=== PATIENT | female | born 1970 | race African-American/Black ===

== ENCOUNTER 2020-03-16 07:03 | Outpatient (CLI) | payer OTHER, SELFPAY ==
[2020-03-16 07:54] LABS: Basophils Percent Auto 0.5 % (0.2-1.2); Eosinophils Absolute Auto 0.1 K/mm3 (0-0.3); Eosinophils Percent Auto 1.1 % (0-4.4); Hematocrit 36.8 % (37.0-47.0); Hemoglobin 11.6 g/dL (12.0-15.0); Immature Granulocyte Absolute 0.02 K/mm3 (0.00-0.031); Immature Granulocyte Percent A 0.3 % (0-0.5); Lymphocytes Percent Auto 35.8 % (18.3-44.2); Mean Corpuscular HGB Conc 31.5 g/dl (32-36); Mean Corpuscular Hemoglobin 28.1 pg (26-34); Mean Corpuscular Volume 89.1 fl (80-100); Mean Platelet Volume 10.8 fl (7.4-10.4); Monocytes Absolute Auto 0.3 K/mm3 (0.1-0.6); Monocytes Percent Auto 5.1 % (2.6-8.5); Neutrophils Absolute Auto 3.7 K/mm3 (1.3-6.7); Neutrophils Percent Auto 57.2 % (45.5-73.1); Platelet Count Result 261 k/mm3 (150-375); Red Blood Count 4.13 M/mm3 (4.2-5.4); Red Cell Distribution Width 13.4 % (11.5-14.5); White Blood Count 6.4 K/mm3 (4.5-10.0)
[2020-03-16 08:04] LABS: Alanine Aminotransferase 21 U/L (4-35); Alkaline Phosphatase 109 U/L (38-126); Anion Gap 8 mmol/L (8-16); Aspartate Amino Transferase 29 U/L (14-36); Bilirubin,Total 0.6 mg/dL (0.2-1.3); Blood Urea Nitrogen 17 mg/dL (7-17); Calcium 9.3 mg/dL (8.4-10.2); Carbon Dioxide 28 mmol/L (22-30); Chloride 105 mmol/L (98-107); Cholesterol 212 mg/dL (0-200); Estimated Glomerular Filt Rate > 60; Glucose 88 mg/dL (65-105); HDL Direct 54 mg/dL; Potassium 3.6 mmol/L (3.4-5.0); Sodium 141 mmol/L (137-145); Triglycerides 71 mg/dL (<150)
[2020-03-16 08:15] LABS: LDL Cholesterol Direct 129 mg/dL
== END 2020-03-16 07:04 | disposition home or self-care (01) ==
PROVIDERS: PCP Family Medicine; Visit Provider Family Medicine
DX: Z13.220 Encounter for screening for lipoid disorders (principal); I10 Essential (primary) hypertension; Z00.00 Encounter for general adult medical examination without abnormal findings
CPT/HCPCS: 36415; 80053; 80061; 84443; 85025

== ENCOUNTER 2020-04-22 02:03 | Day surgery (SDC) | payer OTHER, SELFPAY ==
[2020-04-11 08:50] VITALS: BMI 37.8
--- NOTE | 2020-04-11 09:17 | PC.NURSE ---
PT STATES SHE IS TESTED EVERY TWO WEEKS AT [facility]. SHE TESTED POSITIVE 01/2020 UNSURE OF EXACT DATE WILL BRING IN DOCUMENTATION ON DAY OF PROCEDURE-PT INFORMED SHE MUST BRING THIS FOR PROCEDURE TO BE DONE-SHE VERBALIZES UNDERSTANDING. PT STATES THE ONLY SYMPTOM SHE HAD WAS FATIGUE AND DENIES ANY SYMPTOMS NOW.
[2020-04-22] MEDS: LACTATED RINGERS 1,000 ML 150 ML IV CONT (08:42)
[2020-04-22 08:47] VITALS: BP 130/75; PULSE 65; RESP 18; TEMP 36.4; O2SAT 100; BMI 39.9
--- NOTE | 2020-04-22 09:17 | WPDANESEPPF ---
Anes - Initial Pre Proc Eval Procedure: Operation Date: 04/22/20 10:00 Proposed Procedures p Screening Colonoscopy - Julio Burris MD Date/Time: 04/22/20 09:17 Surgeon: Julio Burris MD Pre Op Diagnosis: Neoplasm Screening Patient Data Age: 49 Gender: F Height: 1.63 m Weight: 105.7 kg Last Vital Signs Temp 36.4 C L 04/22/20 08:47 Pulse 65 04/22/20 08:47 Resp 18 04/22/20 08:47 BP 130/75 04/22/20 08:47 Pulse Ox 100 04/22/20 08:47 Allergies Allergy/AdvReac Type Severity Reaction Status Date / Time No Known Allergies Allergy Verified 04/22/20 08:46 Home Medications Medication Instructions Recorded Confirmed Type sodium,potassium,mag sulfates See Rx Instructions .ROUTE 04/10/20 Rx [Suprep Bowel Prep Kit] .COMPLEX #1 ml Patient hx anesthesia problems: none Family hx anesthesia problems: none PMFSH Surgical History Surgical History (Updated 04/22/20 @ 07:27 by Jona Matamoros DO) History of appendectomy Hx of eye surgery (~04/2018) Family History Family History Father Cerebrovascular accident Hypertension Social History Social History Smoking status: Never smoker Alcohol intake: current Substance use: never Substance use type: does not use Living arrangements: with family Spiritual care concerns: No Anes - Eval Final PreProcedure Day of Procedure 04/22/20 09:17 Patient weight: morbidly obese Heart: regular rate and rhythm Lungs: clear to auscultation and normal air movement Airway: Mallampati scale class II Neurological: alert and oriented Last oral intake: >/= 8 hours ASA classification: III Emergent: no Anesthetic plan: proceed Anesthesia type and monitoring: general GIVS and standard monitoring Informed Consent: The patient's anesthetic plan and its attendant risks and benefits were discussed with the patient/family/POA. Questions were solicited and answers provided to the satisfaction of the patient/family/POA.
--- NOTE | 2020-04-22 09:35 | PM.HPGS ---
History of Present Illness History of Present Illness Consent: Risks, benefits, and alternatives have been discussed and questions answered. Patient agrees to proceed with procedure. Chief complaint: Neoplasm Screening Narrative: Sigrid Hooker is a 49 year old female here for screening colonoscopy Review of Systems Constitutional: Constitutional: Denies headache(s) and Denies weakness Eyes: Eyes: Denies blurry vision ENT: Reports Normal hearing present, Denies headache(s) and Denies neck pain Cardiovascular: Cardiovascular: Denies chest pain and Denies dyspnea Respiratory: Respiratory: Denies dyspnea Gastrointestinal: Gastrointestinal: Reports no additional gastrointestinal complaints Genitourinary: Genitourinary: Denies dysuria Musculoskeletal: Musculoskeletal: Denies neck pain Integumentary/Breasts: Skin/Breast: Denies dry skin Neurologic: Reports Normal hearing present, Denies headache(s) and Denies weakness Psychiatric: Psychiatric: Denies anxiety Endocrine: Endocrine: Denies change in body appearance Hematologic/Lymphatic: Hematologic/Lymphatic: Denies easy bleeding Allergic/Immunologic: Allergic/Immunologic: Denies urticaria PMF Past Medical History Medical History (Updated 04/22/20 @ 09:35 by Julio Burris MD) Colon cancer screening Surgical History Surgical History (Updated 04/22/20 @ 07:27 by Jona Matamoros DO) History of appendectomy Hx of eye surgery (~04/2018) Family History Family History Father Cerebrovascular accident Hypertension Social History Social History Smoking status: Never smoker Alcohol intake: current Substance use: never Substance use type: does not use Living arrangements: with family Spiritual care concerns: No Meds Home Medications and Allergies Home Medications Medication Instructions Recorded Confirmed Type sodium,potassium,mag sulfates See Rx Instructions .ROUTE 04/10/20 Rx [Suprep Bowel Prep Kit] .COMPLEX #1 ml Allergies Allergy/AdvReac Type Severity Reaction Status Date / Time No Known Allergies Allergy Verified 04/22/20 08:46 Vital Signs Vital Signs - 24 hr 04/22/20 08:47 Temperature 97.5 F L Pulse Rate 65 Respiratory Rate 18 Blood Pressure 130/75 Pulse Oximetry 100 Exam Const: General: comfortable and no acute distress HENMT: General nose exam: Normal nares present Eyes: General: appearance normal, both eyes and all related structures Neck: Neck: no JVD Resp: Auscultation: clear to auscultation bilaterally Cardio: Rate: regular rate Rhythm: regular rhythm GI: Inspection: non-distended GI Palp: Yes Soft to palpation Skin: General skin exam: normal color Neuro: General: gait normal Speech: normal speech Extrem: General: normal to inspection Psych: Mental Status: mental status grossly normal Assessment and Plan Assessment and plan (1) Colon cancer screening: Code(s): Z12.11 - Encounter for screening for malignant neoplasm of colon Status: Acute Assessment and Plan: will proceed with colonoscopy
[2020-04-22 10:03] VITALS: BP 105/62; PULSE 81; RESP 27; O2SAT 99
[2020-04-22 10:13] VITALS: BP 102/67; PULSE 75; RESP 25; O2SAT 100
[2020-04-22 10:23] VITALS: BP 128/66; PULSE 66; RESP 19; O2SAT 99
[2020-04-22 10:33] VITALS: BP 122/76; PULSE 64; RESP 18; O2SAT 100
== END 2020-04-22 10:36 | disposition home or self-care (01) ==
PROVIDERS: PCP Family Medicine; Visit Provider Internal Medicine Gastroenterology
PROC: 0DJD8ZZ Inspection of Lower Intestinal Tract, Via Natural or Artificial Opening Endoscopic (ICD-10-PCS; CPT 45378; principal; 2020-04-22 10:00)
DX: Z12.11 Encounter for screening for malignant neoplasm of colon (principal); E66.01 Morbid (severe) obesity due to excess calories; Z68.41 Body mass index [BMI] 40.0-44.9, adult
CPT/HCPCS: 45378; J2001; J2704; J7120

== ENCOUNTER 2021-02-13 06:55 | Outpatient (CLI) | payer OTHER, SELFPAY ==
--- NOTE | ~2021-02-13 | XR_ITS ---
EXAMINATION: XR chest 2V DATE: 02/13/2021 07:31 INDICATION: Tuberculosis. TECHNIQUE: Frontal and lateral views of the chest were obtained. COMPARISON: None. FINDINGS: The chest demonstrates clear lungs without pneumonia, pleural effusion, or pneumothorax. Th e heart size is normal. IMPRESSION: 1. No acute cardiopulmonary disease. Reviewed, dictated and finalized at location A. T SNATCHER
[2021-02-13 07:44] LABS: Basophils Percent Auto 0.3 % (0.2-1.2); Eosinophils Absolute Auto 0.1 K/mm3 (0-0.3); Eosinophils Percent Auto 0.7 % (0-4.4); Hemoglobin 11.6 g/dL (12.0-15.0); Immature Granulocyte Absolute 0.02 K/mm3 (0.00-0.031); Immature Granulocyte Percent A 0.3 % (0-0.5); Lymphocytes Percent Auto 31.3 % (18.3-44.2); Mean Corpuscular HGB Conc 31.4 g/dl (32-36); Mean Corpuscular Hemoglobin 28.1 pg (26-34); Mean Corpuscular Volume 89.6 fl (80-100); Mean Platelet Volume 10.7 fl (7.4-10.4); Monocytes Absolute Auto 0.3 K/mm3 (0.1-0.6); Monocytes Percent Auto 4.9 % (2.6-8.5); Neutrophils Absolute Auto 4.2 K/mm3 (1.3-6.7); Neutrophils Percent Auto 62.5 % (45.5-73.1); Platelet Count Result 265 k/mm3 (150-375); Red Blood Count 4.13 M/mm3 (4.2-5.4); Red Cell Distribution Width 13.3 % (11.5-14.5); White Blood Count 6.7 K/mm3 (4.5-10.0)
[2021-02-13 08:01] LABS: Alanine Aminotransferase 19 U/L (4-35); Albumin Level 4.2 g/dL (3.5-5.1); Alkaline Phosphatase 119 U/L (38-126); Anion Gap 5 mmol/L (8-16); Aspartate Amino Transferase 26 U/L (14-36); Bilirubin,Total 0.7 mg/dL (0.2-1.3); Blood Urea Nitrogen 18 mg/dL (7-17); Calcium 9.7 mg/dL (8.4-10.2); Carbon Dioxide 29 mmol/L (22-30); Chloride 105 mmol/L (98-107); Cholesterol 232 mg/dL (0-200); Estimated Glomerular Filt Rate > 60; Glucose 93 mg/dL (65-110); HDL Direct 48 mg/dL; Potassium 4.2 mmol/L (3.4-5.0); Sodium 139 mmol/L (137-145); Triglycerides 45 mg/dL (<150)
[2021-02-13 08:12] LABS: LDL Cholesterol Direct 141 mg/dL
[2021-02-13 08:29] LABS: Vitamin D 25 Hydroxy 44.1 ng/mL
[2021-02-15 17:08] LABS: Varicella IgM Antibody <=0.90 (<=0.90)
[2021-02-17 04:12] LABS: Hepatitis B Core Ab Total Nonreactive (Nonreactive)
== END 2021-02-13 06:56 | disposition home or self-care (01) ==
LOC: ANHLAB 06:57
PROVIDERS: PCP Family Medicine; Visit Provider Nurse Practitioner
DX: E78.5 Hyperlipidemia, unspecified (principal); Z11.1 Encounter for screening for respiratory tuberculosis; E55.9 Vitamin D deficiency, unspecified; Z02.0 Encounter for examination for admission to educational institution
CPT/HCPCS: 36415; 71046; 80053; 80061; 82306; 85025; 86704; 86787

== ENCOUNTER 2021-02-19 06:44 | Outpatient (CLI) | payer OTHER, SELFPAY ==
[2021-02-19 08:41] LABS: Rubella IgG Antibody 21.7 IU/ML
[2021-02-22 15:39] LABS: Mumps Virus IgG Antibody >300.00 AU/mL
[2021-02-22 20:33] LABS: Rubeola Measles IgG >300.00 AU/mL
== END 2021-02-19 06:45 | disposition home or self-care (01) ==
PROVIDERS: PCP Family Medicine; Visit Provider Nurse Practitioner
DX: Z02.0 Encounter for examination for admission to educational institution (principal)
CPT/HCPCS: 36415; 86735; 86762; 86765

== ENCOUNTER 2021-05-09 10:49 | Outpatient (CLI) | payer OTHER, SELFPAY ==
[2021-05-09 12:42] LABS: Alanine Aminotransferase 17 U/L (4-35); Albumin Level 4.2 g/dL (3.5-5.1); Alkaline Phosphatase 117 U/L (38-126); Anion Gap 5 mmol/L (8-16); Aspartate Amino Transferase 28 U/L (14-36); Bilirubin,Total 1.1 mg/dL (0.2-1.3); Blood Urea Nitrogen 11 mg/dL (7-17); Calcium 9.2 mg/dL (8.4-10.2); Carbon Dioxide 26 mmol/L (22-30); Chloride 107 mmol/L (98-107); Estimated Glomerular Filt Rate > 60; Glucose 91 mg/dL (65-110); Potassium 4.1 mmol/L (3.4-5.0); Sodium 138 mmol/L (137-145)
== END 2021-05-09 10:50 | disposition home or self-care (01) ==
LOC: ANHLAB 10:51
PROVIDERS: PCP Family Medicine; Visit Provider Family Medicine
DX: E78.5 Hyperlipidemia, unspecified (principal); F41.8 Other specified anxiety disorders; R13.10 Dysphagia, unspecified
CPT/HCPCS: 36415; 80053; 84443

== ENCOUNTER 2021-06-02 01:44 | Emergency (ER) | payer OTHER, SELFPAY ==
[2021-06-02] VITALS (26 sets, daily range): BP systolic 123–146; BP diastolic 68–107; PULSE 52–78; RESP 14–27; TEMP 36.4–36.8; O2SAT 98–100
--- NOTE | ~2021-06-02 | XR_ITS ---
EXAMINATION: XR chest 1V portable DATE: 06/02/2021 02:26 INDICATION: Chest pain. TECHNIQUE: A single frontal view of the chest was obtained. COMPARISON: Chest 2 views 02/13/2021 FINDINGS: There is mild atelectasis in right lower lung zone. No pleural effusion or pneumothorax. Th e heart size is normal. IMPRESSION: 1. Mild atelectasis in right lower lung zone. Reviewed, dictated and finalized at location A. STMAS TREE FARM MANAGER
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
--- NOTE | ~2021-06-02 | CT_ITS ---
EXAMINATION: CTA chest PE protocol DATE: 06/02/2021 04:07 INDICATION: Chest pain. TECHNIQUE: Computed tomography angiography (CTA) of the chest was performed with 100 mL Omnipaque-350 intravenous contrast timed to evaluate the pulmonary arteries. Coronal maximum intensity projection 3D-reconstructions were created by the technologist. Automated exposure control and iterative reconst ruction technique were employed. The dose-length product was 847.46 mGy-cm. COMPARISON: Chest single view 06/02/2021 FINDINGS: The lungs demonstrate mild atelectasis. No pleural effusion. The heart size is normal. No p ericardial effusion. There is no pulmonary embolus. There is mild thoracic spondylosis. IMPRESSION: 1. No pulmonary embolus. Reviewed, dictated and finalized at location A. SPECTROMETRY MANAGER IMPRESSION: 1. No pulmonary embolus.
--- NOTE | 2021-06-02 01:49 | ECG_ITS ---
Measurements Intervals [place] Rate: 74 P: 63 W[place]: 187 QRS: 17 QRSD: 83 T: 19 QT: 381 QTc: 423 Interpretive Statements SINUS RHYTHM NORMAL ECG NO PREVIOUS ECG AVAILABLE FOR COMPARISON Electronically Signed On 06-02-2021 14:04:22 MARKETING SUPPORT SPECIALIST by Kei Pitt M.D.
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
[2021-06-02] MEDS: ASPIRIN 81 MG CHEWABLE TABLET 324 MG PO (02:16)
[2021-06-02] MEDS: NITROGLYCERIN OINTMENT 1 INCH DOSE TRANSDERM (02:16)
[2021-06-02] MEDS: SODIUM CHLORIDE 0.9% IV 1,000 ML 1000 ML (02:25)
[2021-06-02 02:31] LABS: Basophils Percent Auto 0.3 % (0.2-1.2); Eosinophils Absolute Auto 0.1 K/mm3 (0-0.3); Eosinophils Percent Auto 1.2 % (0-4.4); Hematocrit 39.7 % (37.0-47.0); Hemoglobin 12.4 g/dL (12.0-15.0); Immature Granulocyte Absolute 0.02 K/mm3 (0.00-0.031); Immature Granulocyte Percent A 0.2 % (0-0.5); Lymphocytes Absolute Auto 3.07 K/mm3 (0.9-3.2); Lymphocytes Percent Auto 35.4 % (18.3-44.2); Mean Corpuscular HGB Conc 31.2 g/dl (32-36); Mean Corpuscular Hemoglobin 28.1 pg (26-34); Mean Corpuscular Volume 89.8 fl (80-100); Mean Platelet Volume 11.7 fl (7.4-10.4); Monocytes Absolute Auto 0.4 K/mm3 (0.1-0.6); Monocytes Percent Auto 4.7 % (2.6-8.5); Neutrophils Percent Auto 58.2 % (45.5-73.1); Platelet Count Result 243 k/mm3 (150-375); Red Blood Count 4.42 M/mm3 (4.2-5.4); Red Cell Distribution Width 13.2 % (11.5-14.5); White Blood Count 8.7 K/mm3 (4.5-10.0)
[2021-06-02 02:40] LABS: Troponin I < 0.012 ng/mL (0.000-0.034)
[2021-06-02 02:56] LABS: Partial Thromboplastin Time 30.5 SECONDS (22.3-36.8); Prothrombin Time 13.1 Seconds (11.1-14.7)
[2021-06-02 02:59] LABS: D Dimer 0.53 ug/mL (<0.48)
[2021-06-02 03:20] LABS: Alanine Aminotransferase 16 U/L (4-35); Albumin Level 3.9 g/dL (3.5-5.1); Alkaline Phosphatase 115 U/L (38-126); Anion Gap 6 mmol/L (8-16); Aspartate Amino Transferase 28 U/L (14-36); Bilirubin,Total 0.4 mg/dL (0.2-1.3); Blood Urea Nitrogen 12 mg/dL (7-17); Carbon Dioxide 27 mmol/L (22-30); Chloride 105 mmol/L (98-107); Estimated CRCL calculation 84 ml/min; Estimated Glomerular Filt Rate > 60; Glucose 97 mg/dL (65-110); Lipase 145 U/L (23-300); Sodium 138 mmol/L (137-145)
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
[2021-06-02 05:22] LABS: Troponin I < 0.012 ng/mL (0.000-0.034)
== END 2021-06-02 06:16 | disposition home or self-care (01) ==
PROVIDERS: Emergency Provider Emergency Medicine; PCP Family Medicine
DX: R07.89 Other chest pain (principal); E78.5 Hyperlipidemia, unspecified
CPT/HCPCS: 36415; 70450; 71045; 71275; 80053; 83690; 84484; 85025; 85380; 85610; 85730; 93005; 96360; 99284; A9270; J7030; Q9967

== ENCOUNTER 2022-08-13 09:18 | Outpatient (CLI) | payer OTHER, SELFPAY ==
--- NOTE | ~2022-08-13 | XR_ITS ---
Left Knee Technique: AP, lateral, and sunrise views were obtained. Clinical History: Pain Findings: No fracture or dislocation is seen. Osseous alignment is anatomic. There is mild to moderat e degenerative change of the medial compartment. There is minimal patellar spurring.. Soft tissues ar e unremarkable. No joint effusion is seen. Impression: Mild to moderate degenerative change of the medial compartment. Mild degenerative change of the patellofemoral compartment. Reviewed, dictated and finalized at location M. Impression: Mild to moderate degenerative change of the medial compartment. Mild degenerative change of the patellofemoral compartment.
--- NOTE | ~2022-08-13 | XR_ITS ---
Right Knee Technique: AP, lateral, and sunrise views were obtained. Clinical History: Pain Findings: No fracture or dislocation is seen. Osseous alignment is anatomic. There is moderate degene rative change of the medial compartment, with medial compartment narrowing and medial joint line oste ophyte formation. There is mild degenerative change at the patellofemoral compartment. Soft tissues a re unremarkable. No joint effusion is seen. Impression: Moderate degenerative change of the medial compartment, as detailed above. Mild degenerative change of the patellofemoral compartment. Reviewed, dictated and finalized at location M. Impression: Moderate degenerative change of the medial compartment, as detailed above. Mild degenerative change of the patellofemoral compartment.
== END 2022-08-13 09:19 | disposition home or self-care (01) ==
PROVIDERS: PCP Family Medicine; Visit Provider Family Medicine
DX: M17.0 Bilateral primary osteoarthritis of knee (principal)
CPT/HCPCS: 73562

== ENCOUNTER 2022-09-02 08:00 | Outpatient (RCR) | payer OTHER, SELFPAY ==
--- NOTE | 2022-08-27 09:57 | OPREHPOC ---
Outpatient Therapy Plan of Care This is a Multidisciplinary Plan of Care that may contain components documented by all disciplines (PT, OT, and ST.) PT Problem 1 PT Problem #1 Knowledge Deficit PT Goal 1 Goal Pt to be IND with issued HEP Target Visit 4 PT Problem 2 PT Problem #2 Pain PT Goal 1 Goal Pt to report maritza knee pain no greater than 4/10 in the last week. Target Visit 4 PT Goal 2 Goal Pt to report 75% improvement in overall symptoms Target Visit 4 Progress Met PT Problem 3 PT Problem #3 Impaired Range of Motion PT Goal 1 Goal Pt to demonstrate active R knee ROM without an increase in pain Target Visit 4 PT Problem 4 PT Problem #4 Impaired Strength PT Goal 1 Goal Pt to demonstrate neutral hip alignment during single leg stance Target Visit 4 PT Goal 2 Goal Pt to improve 5xSTS time from 20s to 15s Target Visit 4 PT Problem 5 PT Problem #5 Impaired Gait PT Goal 1 Goal Pt to improve 2 min walk distance from 415ft to 450ft Target Visit 4
--- NOTE | 2022-08-27 09:57 | PTOPEVAL1 ---
Assessment and note entered by Aly Pitt, PT, DPT Evaluation Information Assessment Status Evaluation Diagnosis maritza knee pain Onset 6 months Subjective Information Pt reports maritza knee pain without a JUAN ALBERTO. Pt states her pain increases with increased activity, with intermittent swelling. At times she states pain limits her ability to walk. Pt states she can stand for 30 mins at the most. She reports feeling like her muscles are too weak to hold her. Her R knee will feel like its going to give out on her, she wears a brace to assist with this. 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 Reported Pain Level Pain Score 6,6: Self Report Assessment PT Clinical Summary Sigrid presents to therapy today for her initial evaluation with a diagnosis of maritza knee pain. Today she demonstrates mild genu valgus during standing with medial knee compression, poor R patellar mobility, gait abnormalities, and hip, knee, and ankle strength deficits. She is limited with how long she can stand prior to needing to sit. Skilled therapy services are indicated to address the deficits noted above, to manage pain, to improve mobility, and to return to [facility]. Plan of Care Interventions Electrical Stimulation,Gait Training,Hot Pack/Cold Pack,Manual Therapy,Neuro Re-education,Patient/ Caregiver Educati,Therapeutic Activities, Therapeutic Exercise PT Services Indicated Yes Treatment Frequency and 1x/wk for 4 wks Duration These treatments will address the objective and functional deficits as defined above. The patient will be advanced safely and appropriately in order for the patient to progress towards his/her prior level of function. Additional exercises will be introduced and as well as a comprehensive home exercise program upon discharge, if needed, ?to ensure carryover of functional gains achieved in the clinic. This treatment plan has been reviewed and agreement upon by the patient.
--- NOTE | 2022-09-10 11:25 | PCPTNOTE ---
Patient called and canceled this date due to illness.
--- NOTE | 2022-09-16 07:59 | PCPTNOTE ---
Patient reports she is out of town and needs to cancel her appointment.
--- NOTE | 2022-09-24 08:28 | PCPTNOTE ---
Patient did not show up for scheduled appointment this date. Called and LVM with instructions for pt to follow up with clinic. If we do not hear from her in 1 week she will be discharged.
--- NOTE | 2022-09-24 16:03 | PCPTNOTE ---
Pt called to clinic today to state the reason she did not come to her appointment is because she is out of town. She states she will call back to reschedule.
--- NOTE | 2022-11-10 11:31 | PTOPDC ---
Assessment and note entered by Aly Pitt, PT, DPT Evaluation Information Assessment Status Discharge - Pt Not Present Diagnosis maritza knee pain Onset 6 months Subjective Information Pt called and cancelled her apt on 09/24/22 and stated she would call back to reschedule. She has not done so. She will be discharged at this time d /t poor therapy attendance. Assessment PT Clinical Summary Sigrid completed 2 visits of skilled therapy from to 09/24/22.
== END 2022-11-10 14:48 | disposition home or self-care (01) ==
LOC: ANHGOSHPT 08:00
PROVIDERS: PCP Family Medicine; Visit Provider Family Medicine
DX: M25.561 Pain in right knee (principal); M25.562 Pain in left knee; G89.29 Other chronic pain
CPT/HCPCS: 97110; 97112; 97161; 97530; 99199

== ENCOUNTER 2024-09-05 14:15 | Outpatient (CLI) | payer OTHER, SELFPAY ==
--- NOTE | ~2024-09-05 | XR_ITS ---
Left Knee Technique: AP, lateral, and sunrise views were obtained. Clinical History: Pain Findings: No fracture or dislocation is seen. Osseous alignment is anatomic. Minimal degenerative sotero nges are present with any. Soft tissues are unremarkable. No joint effusion is seen. Impression: Minimal degenerative changes of the knee. Reviewed, dictated and finalized at location . Impression: Minimal degenerative changes of the knee.
--- NOTE | ~2024-09-05 | XR_ITS ---
Right Knee Technique: AP, lateral, and sunrise views were obtained. Clinical History: Pain Findings: No fracture or dislocation is seen. There is moderate degenerative change of the medial com partment, with medial compartment narrowing and osteophyte formation. There is mild to moderate spurr ing of the patellofemoral compartment. Soft tissues are unremarkable. No joint effusion is seen. Impression: Degenerative changes, as above, particularly of the medial and patellofemoral compartments. Reviewed, dictated and finalized at location M. Impression: Degenerative changes, as above, particularly of the medial and patellofemoral c ompartments.
== END 2024-09-05 14:16 | disposition home or self-care (01) ==
LOC: GOSHIMG 14:15
PROVIDERS: PCP Family Medicine; Visit Provider Family Medicine
DX: M25.561 Pain in right knee (principal); M25.562 Pain in left knee; G89.29 Other chronic pain
CPT/HCPCS: 73564

== ENCOUNTER 2024-10-07 06:53 | Outpatient (CLI) | payer OTHER, SELFPAY ==
[2024-10-07 07:47] LABS: Hematocrit 37.7 % (37.0-47.0); Hemoglobin 11.6 g/dL (12.0-15.0); Immature Granulocyte Percent A 0.3 % (0-0.5); Lymphocytes Absolute Auto 1.96 K/mm3 (0.9-3.2); Mean Corpuscular HGB Conc 30.8 g/dl (32-36); Mean Corpuscular Hemoglobin 27.4 pg (26-34); Mean Corpuscular Volume 89.1 fl (80-100); Nucleated Red Blood Cells Absolute Auto 0.000 K/mm3 (0.0-0.012); Nucleated Red Blood Cells Perc 0.0 % (0.0-0.2); Platelet Count Result 239 k/mm3 (150-375); Red Blood Count 4.23 M/mm3 (4.2-5.4); White Blood Count 5.9 K/mm3 (4.5-10.0)
[2024-10-07 07:57] LABS: Hemoglobin A1C 5.6 % (<5.7)
[2024-10-07 08:05] LABS: Alanine Aminotransferase 25 U/L (6-35); Albumin Level 4.0 g/dL (3.5-5.1); Alkaline Phosphatase 113 U/L (38-126); Anion Gap 7 mmol/L (4-12); Aspartate Amino Transferase 35 U/L (14-36); Bilirubin,Total 0.7 mg/dL (0.2-1.3); Blood Urea Nitrogen 13 mg/dL (7-17); Calcium 9.3 mg/dL (8.4-10.2); Carbon Dioxide 26 mmol/L (22-30); Chloride 104 mmol/L (98-107); Cholesterol 214 mg/dL (0-200); Estimated Glomerular Filt Rate > 60; Glucose 85 mg/dL (65-110); HDL Direct 48 mg/dL; Potassium 4.5 mmol/L (3.4-5.0); Sodium 137 mmol/L (137-145); Total Protein 8.0 g/dL (6.3-8.2); Triglycerides 56 mg/dL (<150)
[2024-10-07 08:59] LABS: Vitamin B12 790.0 pg/mL (239-931)
[2024-10-07 10:06] LABS: Thyroid Stimulating Hormone Reflex 1.190 uIU/mL (0.465-4.68)
== END 2024-10-07 06:54 | disposition home or self-care (01) ==
LOC: ANHLAB 06:54
PROVIDERS: PCP Family Medicine; Visit Provider Family Medicine
DX: Z00.00 Encounter for general adult medical examination without abnormal findings (principal); F41.9 Anxiety disorder, unspecified; E78.5 Hyperlipidemia, unspecified; E55.9 Vitamin D deficiency, unspecified; E53.8 Deficiency of other specified B group vitamins; R73.9 Hyperglycemia, unspecified; Z79.899 Other long term (current) drug therapy
CPT/HCPCS: 36415; 80053; 80061; 82306; 82607; 83036; 84443; 85025

== ENCOUNTER 2024-12-20 08:45 | Outpatient (CLI) | payer OTHER, SELFPAY ==
--- NOTE | ~2024-12-20 | MM_ITS ---
EXAMINATION: MM screening [facility]ard BI w johanny HISTORY: Screening TECHNIQUE: Craniocaudal and mediolateral oblique 3-D tomosynthesis images were obtained and synthetic 2-D images were generated. CAD analysis was submitted and interpreted. COMPARISON: 11/12/2017 BREAST PARENCHYMAL COMPOSITION: Not Dense: The breasts are almost entirely fatty. FINDINGS: There is no evidence of suspicious mass, calcification, or architectural distortion to suggest malignancy in either breast. [There has been no significant interval change. IMPRESSION: 1. No mammographic evidence of malignancy. Recommend routine screening mammography in one year. BI-RADS Category 1: Negative Reviewed, dictated, and finalized at Location A. Reviewed, dictated and finalized at location Q. IMPRESSION: 1. No mammographic evidence of malignancy. Recommend routine screening mammogra phy in one year. BI-RADS Category 1: Negative
== END 2024-12-20 08:46 | disposition home or self-care (01) ==
LOC: CHSIMG 08:46
PROVIDERS: PCP Family Medicine; Visit Provider Nurse Practitioner Family
DX: Z12.31 Encounter for screening mammogram for malignant neoplasm of breast (principal)
CPT/HCPCS: 77063; 77067